=== PATIENT | male | born 1930 | race Two or more races ===

== ENCOUNTER 2017-07-28 18:19 | Inpatient (IN) | payer MEDICARE, MEDICAID ==
--- NOTE | 2017-07-28 18:53 | ED Physician Chart ---
ED Chief Complaint/HPI - Patient Information Date Seen:: 07/28/17 Time Seen:: 18:52 Allergies:: Allergies Allergy/AdvReac Type Severity Reaction Status Date / Time No Known Allergies Allergy Verified 02/11/16 19:36 Vitals:: Vital Signs - 8 hr 07/28/17 18:37 Temp 99.3 F HR 80 RR 18 BP 159/80 O2 Sat % 96 <Charles Wolf - Last Filed: 07/28/17 18:51> - Patient Information Chief Complaint:: increased delusions, psychosis History of Present Illness:: location: general quality: inappropriate toileting behavior severity: moderate duration; one day context: SNF pt with prior history of psychiatric problems was at facility today and having bowel movement and playing with feces in his room. facility RNs were unable to provide care for the patient due to this abnormal behavior so called physician who advised medical evaluation and possible psychiatric treatment as needed. medics report pt with stable vital signs during transport. no pain complaint. no fever, no vomiting. mod factors: none assoc s/s: none hx from facility RN, patient, physician Allergies:: Allergies Allergy/AdvReac Type Severity Reaction Status Date / Time No Known Allergies Allergy Verified 02/11/16 19:36 Vitals:: Vital Signs - 8 hr 07/28/17 18:37 Temp 99.3 F HR 80 RR 18 BP 159/80 O2 Sat % 96 Historian:: Patient, EMS Review:: Nurse's Note Reviewed <Ady Luna - Last Filed: 07/28/17 21:30> ED Review of Systems - Review of Systems General/Constitutional: No fever, No chills, No weight loss, No weakness, No diaphoresis, No edema, No loss of appetite Skin: No skin lesions, No rash, No bruising Head: No headache, No light-headedness Eyes: No loss of vision, No pain, No diplopia ENT: No earache, No nasal drainage, No sore throat, No tinnitus Neck: No neck pain, No swelling, No thyromegaly, No stiffness, No mass noted Cardio Vascular: No chest pain, No palpitations, No PND, No orthopnea, No edema Pulmonary: No SOB, No cough, No sputum, No wheezing GI: No nausea, No vomiting, No diarrhea, No pain, No melena, No hematochezia, No constipation, No hematemesis G/U: No dysuria, No frequency, No hematuria Musculoskeletal: No bone or joint pain, No back pain, No muscle pain Endocrine: No polyuria, No polydipsia Psychiatric: No prior psych history, No depression, No anxiety, No suicidal ideation Hematopoietic: No bruising, No lymphadenopathy Allergic/Immuno: No urticaria, No angioedema Neurological: No syncope, No focal symptoms, No weakness, No paresthesia, No headache, No seizure, No dizziness, No confusion, No vertigo <Ady Luna - Last Filed: 07/28/17 21:30> ED Past Medical History - Past Medical History Past Medical History: HTN, DM, CAD, Asthma/COPD, Dementia, Other (Alzheimer's, BPH) Family History: None Social History: Non Smoker, No Alcohol, No Drug Use, Single, Care Facility Surgical History: None Psychiatricy History: Dementia, Other (psychosis) Medication: Reviewed <Ady Luna - Last Filed: 07/28/17 21:30> Family Medical History - Family Member Father History Unknown: Yes Ethnicity: Living Status: Unknown <Charles Wolf - Last Filed: 07/28/17 18:51> ED Physical Exam - Physical Examination General/Constitutional: Awake, Well-developed, well-nourished, Alert, No distress, Non-toxic appearing Head: Atraumatic Eyes: Lids, conjuctiva normal, PERRL, EOMI Skin: Nl inspection, No rash, No skin lesions, No ecchymosis, Well hydrated, No lymphadenopathy ENMT: External ears, nose nl, Nasal exam nl, Lips, teeth, gums nl Neck: Nontender Respiratory: Nl effort/Exclusion, Clear to Auscultation, No Wheeze/Rhonchi/Rales Cardio Vascular: RRR, No murmur, gallop, rubs, NL S1 S2 GI: No tenderness/rebounding/guarding, Normal BS's, Nondistended, No McBurney tenderness : No CVA tenderness Extremities: No tenderness or effusion, No edema, Normal digits & nails Neuro/Psych: Normal sensory exam, Normal motor strength, Mood normal, No focal deficits Misc: Normal back, No paraspinal tenderness <Ady Luna - Last Filed: 07/28/17 21:30> ED Labs/Radiology/EKG Results - Lab Results Results: Laboratory Tests 07/28/17 07/28/17 20:15 20:15 WBC 8.2 RBC 4.75 Hgb 13.9 Hct 42.0 D MCV 88.5 MCH 29.2 MCHC Differential 33.0 RDW 14.9 Plt Count 290 D MPV 5.9 Neutrophils % 76.3 Lymphocytes % 14.9 L Monocytes % 6.5 Eosinophils % 2.3 Basophils % 0.0 ESR 75 H Sodium 138 Potassium 3.8 Chloride 106 Carbon Dioxide 25.1 Anion Gap 10.7 BUN 23 Creatinine 0.5 L Est GFR ( Amer) TNP Est GFR (Non-Af Amer) TNP BUN/Creatinine Ratio 46.0 Glucose 123 H Calcium 9.6 Total Bilirubin 0.3 AST 13 ALT 8 Alkaline Phosphatase 97 Total Protein 6.8 Albumin 3.8 L Globulin 3.0 Albumin/Globulin Ratio 1.3 Laboratory Tests 07/28/17 07/28/17 20:15 20:15 WBC 8.2 RBC 4.75 Hgb 13.9 Hct 42.0 D MCV 88.5 MCH 29.2 MCHC Differential 33.0 RDW 14.9 Plt Count 290 D MPV 5.9 Neutrophils % 76.3 Lymphocytes % 14.9 L Monocytes % 6.5 Eosinophils % 2.3 Basophils % 0.0 ESR 75 H Sodium 138 Potassium 3.8 Chloride 106 Carbon Dioxide 25.1 Anion Gap 10.7 BUN 23 Creatinine 0.5 L Est GFR ( Amer) TNP Est GFR (Non-Af Amer) TNP BUN/Creatinine Ratio 46.0 Glucose 123 H Calcium 9.6 Total Bilirubin 0.3 AST 13 ALT 8 Alkaline Phosphatase 97 Total Protein 6.8 Albumin 3.8 L Globulin 3.0 Albumin/Globulin Ratio 1.3 - EKG Interpretations Comments:: EKG NSR 82 prolonged OK interval abnormal R wave progression, early transition pt with no chest pain abnormal EKG with chronic findings ER READ <Ady Luna Last Filed: 07/28/17 21:30> ED Assessment - Assessment General Assessment: pt in stable condition while in ER. pt is talking to himself while in ER and supine on gurney <Ady Luna - Last Filed: 07/28/17 21:30> ED Septic Shock - <6hrs of presentation: Vital Signs: Vital Signs - 8 hr 07/28/17 18:37 Temp 99.3 F HR 80 RR 18 BP 159/80 O2 Sat % 96 <Charles Wolf - Last Filed: 07/28/17 18:51> - . Is Septic Shock (SBP<90, OR Lactate>4 mmol\L) present?: No - <6hrs of presentation: Vital Signs: Vital Signs - 8 hr 07/28/17 18:37 Temp 99.3 F HR 80 RR 18 BP 159/80 O2 Sat % 96 <Ady Luna - Last Filed: 07/28/17 21:30> ED Reassessment (Disposition) - Reassessment Reassessment:: pt in stable condition while in ER. Reassessment Condition:: Unchanged - Diagnosis Diagnosis:: medical clearance for gertrude psyc acute psychosis with abnormal behavior, playing with fecal matter. - Patient Disposition Discharge/Transfer:: Acute Care w/in this hosp Admitted to:: [facility] Admitting Medical Physician:: Dereck Rueda Admitting Psych Physician:: Esdras Mendez Condition at Disposition:: Stable <Ady Luna - Last Filed: 07/28/17 21:30> ED Discharge Plan <Charles Wolf - Last Filed: 07/28/17 18:51> <Ady Luna - Last Filed: 07/28/17 21:30> - Patient Disposition Instructions: Psychosis
[2017-07-28 20:22] LABS: % EOSINOPHILS 2.3 % (0.0-5.0); % LYMPHOCYTES 14.9 % (20.0-50.0); % MONOCYTES 6.5 % (2.0-10.0); % NEUTROPHILS 76.3 % (40.0-80.0); EOSINOPHILE ABSOLUTE 0.2 Th/cmm (0.1-0.4); HEMOGLOBIN 13.9 gm/dL (12-16); LYMPHOCYTE ABSOLUTE 1.2 Th/cmm (1.5-3.0); MEAN CELL VOLUME 88.5 fl (80-99); MEAN CORPUSCULAR HEMOGLOBIN 29.2 pg (27.0-31.0); MEAN PLATELET VOLUME 5.9 fl; MONOCYTE ABSOLUTE 0.5 Th/cmm (0.3-1.0); NEUTROPHILE ABSOLUTE 6.3 Th/cmm (1.8-8.0); RED BLOOD COUNT 4.75 Mil/cmm (3.80-5.80); RED CELL DISTRIBUTION WIDTH 14.9 % (11.5-20.0); WHITE BLOOD COUNT 8.2 Th/cmm (4.8-10.8)
[2017-07-28 20:23] LABS: PLATELET COUNT 290 Th/cmm (150-400)
[2017-07-28 20:42] LABS: ALBUMIN 3.8 gm/dL (4.2-5.5); ANION GAP 10.7 (7.0-16.0); BUN - UREA NITROGEN 23 mg/dL (7-25); CALCIUM SERUM 9.6 mg/dL (8.6-10.3); CARBON DIOXIDE 25.1 mEq/L (21.0-31.0); CHLORIDE 106 mEq/L (98-107); CREATININE - SERUM 0.5 mg/dL (0.7-1.3); GLUCOSE 123 mg/dL (70-105); POTASSIUM SERUM 3.8 mEq/L (3.5-5.1); SODIUM SERUM 138 mEq/L (136-145); TOTAL PROTEIN,SERUM 6.8 gm/dL (6.0-8.3)
[2017-07-28 20:43] LABS: ALB/GLOB RATIO 1.3 (1.0-1.8); ALKALINE PHOSPHATASE 97 U/L (34-104); BILIRUBIN,TOTAL 0.3 mg/dL (0.3-1.0); SGOT 13 U/L (13-39); SGPT/ALT 8 U/L (7-52)
[2017-07-28 21:04] LABS: ESR SEDIMENTATION SED RATE 75 mm/hr (0-20)
[2017-07-28 22:28] VITALS: BP 152/72
[2017-07-28] MEDS ORDERED: Magnesium Hydroxide (MOM) 30 mL UDC PO PRN (23:05)
[2017-07-28] MEDS ORDERED: Maalox 30 mL Cup PO PRN (23:05)
[2017-07-29] MEDS ORDERED: Non-Formulary Item 1 EA (Amino Acids/Protein Hydrolys [Pro-Stat Sugar Free Liquid] 30 ML) PO SCH (09:00)
[2017-07-29] MEDS: Multivitamin Tab PO SCH (09:26)
--- NOTE | 2017-07-29 09:46 | History & Physical ---
ADMIT DATE: PATIENT IDENTIFICATION: An 86-year-old male. CHIEF COMPLAINT: "I'm fine." HISTORY OF PRESENT ILLNESS: An 86-year-[place] resident of [place], has been followed by myself and my nurse practitioner, sent to [facility] Emergency Room for delusion because he believes that everything belongs to him and he was confused and agitated. The patient was seen by ER MD and subsequently admitted to Geropsych Unit for further management. PAST MEDICAL HISTORY: Remarkable for; 1. Diabetes. 2. Hypertension. 3. Alzheimer's dementia. 4. Diffuse DJD. 5. Coronary artery disease. 6. COPD. 7. BPH. MEDICATIONS: Medication list has been reviewed and reconciled appropriately. ALLERGIES: The patient is not allergic to any medication. SOCIAL HISTORY: The patient lives in a detention. The patient does not smoke, does not drink. FAMILY MEDICAL HISTORY: Negative for diabetes, hypertension. REVIEW OF SYSTEMS: Unable to get meaningful history due to current condition. PHYSICAL EXAMINATION: GENERAL: The patient is alert, awake, follows command. VITAL SIGNS: Temperature 98, pulse is 64, respiratory rate 18, and blood pressure 136/70. HEENT: Normocephalic, atraumatic. Extraocular muscles are intact. Tongue was pink and coated. Poor dentition noted. No oral lesion. No exudate. No sinus tenderness. External auditory canal and tympanic membranes are well visualized. NECK: Supple. No JVD. No hepatojugular reflex. No lymphadenopathy, thyromegaly, or carotid bruit. HEART: Both heart sounds are regular. CHEST: Lung equal in expansion. No expiratory wheezing. ABDOMEN: Soft. No guarding. No rigidity. Liver and spleen are not palpable. No palpable mass. EXTREMITIES: No edema. No cyanosis. No clubbing. Pulses are +2. No calf tenderness noted. Diffuse osteoarthritic changes noted. NEUROLOGIC: Alert and awake, follows command. No facial asymmetry. Power in upper and lower extremity is 5-. Sensation to touch was intact. Babinski in both toes are going down. No cerebral sign. AVAILABLE DIAGNOSTIC DATA: Performed in Emergency Room has been reviewed. Total time reviewing the record was approximately 1 minute. CLINICAL IMPRESSIONS: 1. Diabetes mellitus. 2. Hypertension. 3. Hyperlipidemia. 4. Coronary artery disease. 5. Chronic obstructive pulmonary disease. 6. Alzheimer's dementia. 7. Degenerative joint disease. 8. Psychotic disorder exacerbation. PLAN: 1. Psychotic disorder exacerbation management deferred to psychiatrist. 2. Resume his home medicine as the patient is receiving. 3. Fall precaution. 4. General nursing care. 5. The patient is medically stable to participate in the activity per the Geropsych Unit. 6. The patient will be followed by us during his stay for medical management. 7. Care plan reviewed and discussed with staff as well. JOB# [id number]
[2017-07-29] MEDS ORDERED: Non-Formulary Item 1 EA (Melatonin [Melatonin] 6 MG) PO SCH (21:00)
--- NOTE | 2017-07-30 02:23 | Psychosocial Evaluation ---
DATE OF SERVICE: 07/29/2017 PSYCHIATRIC EVALUATION AND EXAMINATION IDENTIFYING DATA: The patient is an 86-year-old male, resident of [facility]. Information obtained by directly interviewing the patient as well as reviewing the admission papers. JUSTIFICATION OF HOSPITALIZATION: The patient is admitted here on a voluntary basis in view of acute psychosis and agitation. CHIEF COMPLAINT: "I am not strong enough, I need to get some help." HISTORY OF PRESENT ILLNESS: This is the first psychiatric hospitalization to [facility] for this patient who is reported to have been getting easily agitated and has been getting easily upset. The patient is also reported to have been acting very bizarre and not making much sense and hence the patient has been referred over here for further stabilization. The patient is being followed up by Dr. Herrera on an outpatient basis. Sleep and appetite prior to the hospitalization are reported to be poor. The patient is stating that he needs to get some strength and when I spoke to someone there is speaking American. The patient is not making any sense and is going on a tangent. PAST PSYCHIATRIC HISTORY: Details are not known. MEDICAL HISTORY: Physical examination is requested to be done by Dr. Mendez. SUBSTANCE ABUSE HISTORY: None. PHYSICAL OR SEXUAL ABUSE HISTORY: None. LEGAL PROBLEMS: None at this time. MENTAL STATUS EXAMINATION: The patient is an 86-year-old, looking his stated age, thin built, superficially cooperative, and primarily American speaking. Insight and judgment are very much impaired. Impulse control is noted to be poor. The patient has both short-term as well as long-term memory deficits, but the patient is stating that he came into the hospital to get some strength. The patient's behavior is reported to have been a danger to others and the patient is not suicidal. The patient is reported to have been getting easily upset. DIAGNOSTIC IMPRESSION: AXIS I: 1A. Psychosis, not otherwise specified. 1B. Dementia and behavioral change, secondary trait. AXIS II: None. AXIS III: As per Dr. Mendez. IMMEDIATE TREATMENT PLAN: The patient is going to be observed on inpatient unit, provided with supportive psychotherapy. The patient is going to be started on low dose of the Seroquel. The patient is going to be closely monitored. Once stabilized, the patient is going to be discharged to [facility] to be followed up on an outpatient basis. JOB# [id number]
[2017-07-30] MEDS: Multivitamin Tab PO SCH (09:26)
--- NOTE | 2017-07-31 00:50 | Consultation ---
DATE OF CONSULTATION: 07/30/2017 REQUESTING PHYSICIAN: Dereck Rueda M.D. TYPE OF CONSULTATION: Psychology. HISTORY OF PRESENT ILLNESS: The following is by review of the medical record as well as by patient's self report. According to record review, the patient is an 86-year-old male who was a resident of [facility]. This patient is known to this resume writer from his assisted facility. The patient is being admitted on a voluntary basis due to acute psychosis and agitation. Upon interview, the patient was able to recognize this resume writer. The patient stated he feels very weak and that he needs help. The patient was not specific as to what type of help he is requesting. The patient denied any suicidal ideation, plan, or intention. The patient is able to contract for safety. According to the staff at his facility, the patient has been getting easily agitated and is not making much sense. The staff indicated that his behavior had become unredirectable and therefore, he was referred here for stabilization. PAST MEDICAL HISTORY: Please see history and physical by Dr. Mendez. PAST PSYCHIATRIC HISTORY: The patient has a history of dementia with behavioral disturbance and psychosis. The patient has been seen at his facility by this resume writer as well as by Dr. Herrera for Psychiatry. CURRENT MEDICATIONS: Please see medication reconciliation. ALLERGIES: No known allergies. SUBSTANCE ABUSE HISTORY: None unremarkable. PSYCHOSOCIAL HISTORY: The patient is a resident at [facility]. The patient does have family members that visit him and are supportive. The patient is retired. Occupational and educational history are in the previous medical record. 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 MENTAL STATUS EXAMINATION: The patient appears to be his stated age. The patient's attitude is superficially cooperative. He is easily distracted. Eye contact is poor. The patient is able to speak some basic Swiss. The patient was also seen with a Lao speaking SECTION REPAIRER to assist in interpretation if needed. Mood is confused and depressed. Affect is constricted. Thought process shows to be confused. The patient is not making much sense and his thought process is markedly tangential. He admits to feeling helpless. He did respond to cognitive redirection. The patient denied any suicidal ideation, plan or intention. The patient denies any auditory or visual hallucinations. Impulse control is poor. Concentration is poor. The patient was unable to sustain focus and attention but did respond to cognitive redirection. The patient's sensorium is alert and oriented to self and this resume writer, but not to place, date, or time. The patient also unable to perform the memory exercises for evaluation. Immediate short term and long-term memory are impaired. The patient did not answer questions when given the 3 proverbs. Insight is poor. Judgment is compromised. DIAGNOSTIC IMPRESSION: AXIS I: 1. Psychosis, not otherwise specified. 2. History of dementia with behavioral disturbance. AXIS II: None. AXIS III: Please see history and physical by Dr. Mendez. TREATMENT PLAN: The patient has been evaluated by Dr. Rueda for psychiatric assessment and the management of the patient's psychotropic medications. We will provide supportive therapy. We will provide reality orientation, reality differentiation, and reality integration. We will provide motivational enhancement and positive reinforcement for the patient to become compliant and stay compliant with all aspects of his care and treatment. We will provide coping skills for phase of life issues which include amara-based beliefs that he responds to. The patient will be followed up post-discharge at his assisted facility by Dr. Herrera as well as this resume writer. Thank you, Dr. Rueda for this consult and the opportunity to participate in this patient's care. JOB# [id number] BYRON
--- NOTE | 2017-07-31 02:57 | Progress Notes ---
DATE: 07/30/2017 SUBJECTIVE: Staff was spoken to. The patient is interviewed. Mood is noted to be irritable. Affect is constricted. The patient is very agitated and has been screaming and yelling and trying to get out of the GD chair. The patient has no insight into his illness. Coping skills are noted to be extremely poor. The patient is reported to have been playing with his feces. The patient is not making any sense and has been cursing the staff out and hence it is decided to start the patient with 12.5 mg twice a day of the Seroquel and follow the patient with supportive therapy. The patient is going to be given a dose of the Ativan to calm him down at this time. ASSESSMENT: The patient is very confused and agitated and is not ready to be discharged to a lower level of care. JOB# [id number]
[2017-07-31] MEDS: Multivitamin Tab PO SCH (09:09)
--- NOTE | 2017-07-31 21:28 | Progress Notes ---
DATE: 07/31/2017 SUBJECTIVE: The patient seen and examined. The patient is lying in the bed, unable to get meaningful history from the patient. Available MAR and lab reviewed. PHYSICAL EXAMINATION: On exam, VITAL SIGNS: Temperature 98.8, pulse 80, respiratory is 18, blood pressure 125/70. HEENT: No facial asymmetry. NECK: Supple. No JVD. HEART: Regular. CHEST AND LUNG: Equal in expansion. Mild expiratory wheezing. ABDOMEN: Soft. No guarding, rigidity. Bowel sounds are present. No palpable mass. EXTREMITIES: No edema. No cyanosis. NEUROLOGIC: Alert, awake, follows commands. CLINICAL IMPRESSION: 1. Diabetes. 2. Hypertension. 3. Alzheimer dementia. 4. Diffuse degenerative joint disease. 5. Coronary artery disease. 6. Chronic obstructive pulmonary disease remained stable. 7. Benign prostatic hypertrophy. 8. Psychotic disorder. PLAN: 1. Glucose monitoring. 2. Antihypertensive medicine. 3. Statin. 4. Aspirin. 5. Psych medication. 6. Dementia medication. 7. Fall precaution. 8. General nursing care. 9. We will continue to follow this patient in the hospital. JOB# [id number]
--- NOTE | 2017-07-31 23:46 | Progress Notes ---
DATE: 07/31/2017 CHIEF COMPLAINT: Psychotic illness. SUBJECTIVE: The patient was seen, discussed with staff. Still confused, disorganized. The patient at times playing with himself, disrobe in playing with his feces. MENTAL STATUS EXAM: The patient is oriented to person, not oriented to time or place. Yi speaking, mostly internally preoccupied. Insight is poor. Judgment impaired. ASSESSMENT: The patient in psychotic phase, still confused. PLAN: Continue Seroquel 12.5 mg p.o. b.i.d. and Aricept 10 mg p.o. at bedtime. JOB# [id number]
[2017-08-01] MEDS: Multivitamin Tab PO SCH (08:41)
--- NOTE | 2017-08-02 04:42 | Progress Notes ---
DATE: 08/01/2017 SUBJECTIVE: The patient is seen. The patient presents as confused and speaking Japanese only today. This business writer enlisted the aid of a Japanese speaking EDGE BURNISHER UPPERS to assist in interpreting. The patient is preoccupied and responding to internal stimuli. The patient is not making any sense even with the interpretation. According to staff, the patient has been disrobing and openly touching himself below the waist. Behavioral redirection is still difficult and the patient is not responding. OBJECTIVE: As above, the patient is oriented to self only. Mood is irritable. The patient did not answer questions about auditory or visual hallucinations; however, the patient is obviously preoccupied with internal dialogue. Insight and judgment are impaired. ASSESSMENT: Psychosis, not otherwise specified; Dementia with behavioral disturbance. PLAN: The patient has been seen by Dr. Marquez and is continued on Seroquel and Aricept. We provided behavioral management with respect to the patient's poor impulse control and for the patient to become compliant with care and to follow through with staff direction. The patient will be closely monitored. Remotivation towards treatment is given. JOB# [id number] MTDD
[2017-08-02] MEDS: Multivitamin Tab PO SCH (08:29)
--- NOTE | 2017-08-02 10:29 | Progress Notes ---
DATE: 08/01/2017 SUBJECTIVE: I met this patient, discussed with staff, chart reviewed; still irritable; talking to himself, mostly in Slovenian. The patient is oriented to person, not oriented to time and place. The patient continues to have some anger outbursts and agitation. The patient appears to be confused and forgetful. ASSESSMENT: We will continue stabilization. Continue medication management. Continue supportive measures. Continue Seroquel and Aricept. [facility]# [id number]
--- NOTE | 2017-08-03 01:15 | Progress Notes ---
DATE: 08/02/2017 SUBJECTIVE: The patient was seen, chart reviewed. Still disorganized, confused, irritable. The patient is Cuban speaking only. The patient is still at times playing with his feces, but his appetite is fair. The patient is taking his medications, does not appear to have any sedation. ASSESSMENT: The patient still in psychotic phase. PLAN: Continue stabilization. Continue hospitalization. Monitor closely. JOB# [id number]
[2017-08-03] MEDS: Multivitamin Tab PO SCH (09:17)
--- NOTE | 2017-08-03 20:21 | Progress Notes ---
DATE: 08/03/2017 SUBJECTIVE: The patient was seen today, remains superficial, disorganized, still have some anger outburst, still episodes where with feces. His insight is poor and judgment is impaired. The patient is oriented to person, not oriented to time or place. ASSESSMENT: The patient is still confused, some agitation. PLAN: Continue supportive measure, continue Seroquel 12.5 mg p.o. b.i.d. and Aricept at current dose. Add Namenda 5 mg p.o. every day. JOB# [id number]
[2017-08-04] MEDS: Multivitamin Tab PO SCH (09:18)
--- NOTE | 2017-08-04 10:21 | Progress Notes ---
DATE: 08/04/2017 SUBJECTIVE: The patient seen and examined. The patient is lying in the bed. No new event. Available MAR reviewed. Available nurse's note reviewed. OBJECTIVE: VITAL SIGNS: Temperature 98, pulse is 70, respiratory rate is 20, blood pressure 132/76. HEENT: No facial asymmetry. Poor dentition noted. NECK: Supple. No JVD. No hepatojugular reflux. No lymphadenopathy. HEART: Both heart sounds are regular. CHEST: Lung equal in expansion, no expiratory wheezing. ABDOMEN: Soft. No guarding, rigidity. Bowel sounds are present. No palpable mass. EXTREMITIES: No edema. NEUROLOGIC: Alert, awake, follows commands. Decreased power throughout the upper and lower extremity. MEDICATION: Admission record is reviewed. CLINICAL IMPRESSION: 1. Diabetes. 2. Hypertension. 3. Alzheimer's dementia. 4. Coronary artery disease. 5. Chronic obstructive pulmonary disease. 6. Benign prostatic hypertrophy. 7. Psychotic disorder. 8. Degenerative joint disease. 9. Decline in self-care and mobility. PLAN: 1. Diabetes management. 2. Antihypertensive medicine. 3. Psych followup. 4. P.r.n. inhalation therapy. 5. General nursing care. 6. Over bladder outlet obstruction. 7. Follow consult recommendation. 9. Care plan reviewed and discussed with staff. JOB# [id number]
--- NOTE | 2017-08-05 02:11 | Progress Notes ---
DATE: 08/04/2017 SUBJECTIVE: The patient was seen, chart reviewed, discussed with staff. Still forgetful, confused, irritable at times, some anger outburst. The patient was easy to redirect by staff. He is compliant with his medications. His insight is still poor, judgment remains impaired. The patient is oriented to person, not oriented to time or place. ASSESSMENT: The patient with agitation and anger outburst, still displaying bizarre behavior at times. PLAN: Continue hospitalization and monitor closely. Continue supportive measures. Continue medication management. JOB# [id number]
[2017-08-05] MEDS: Multivitamin Tab PO SCH (09:53)
--- NOTE | 2017-08-05 20:28 | Discharge Summary ---
DATE OF DISCHARGE: 08/05/2017 REASON FOR HOSPITALIZATION: Psychosis, not otherwise specified; dementia, Alzheimer's type with behavior disturbances. HISTORY OF PRESENT ILLNESS: The patient is an 86-year-old male who was transferred from his detention facility [facility] for increased confusion, agitation, anger outburst and acting bizarre, was disorganized and was becoming difficult to care for at his facility. The patient was evaluated and admitted. HOSPITALIZATION COURSE: The patient was noted to be forgetful, confused, sometimes becomes agitated mostly with male staff. The patient was given Seroquel. Agitation improved over time. Some sense of confusion, was noted to be playing with feces at times. Condition responded to the treatment favorably. In terms of agitation and aggressive behavior, which subsided down and the patient was discharged back to his detention facility. However, he continued to became forgetful. FINAL DIAGNOSES: Psychosis, not otherwise specified; dementia, Alzheimer's type. PAST MEDICAL HISTORY: Diabetes, hypertension, DJD, CAD, COPD, BPH. CONDITION ON DISCHARGE: Improved. No agitation, but patient still forgetful. The patient with fair sleep and appetite. DISPOSITION: The patient was discharged back to his facility. EXPECTED COURSE OF RECOVERY: Fair. The patient with chronic condition. JOB# [id number]
== END 2017-08-05 15:30 | disposition home or self-care (01) | DRG 885 ==
LOC: ER 18:19 → GERO 21:20 → GERO2 08-04 09:55
PROVIDERS: ADMIT Psychiatry & Neurology Psychiatry; ATTEND Psychiatry & Neurology Psychiatry
DX: F29 Unspecified psychosis not due to a substance or known physiological condition (principal); F02.81 Dementia in other diseases classified elsewhere, unspecified severity, with behavioral disturbance; E11.9 Type 2 diabetes mellitus without complications; G30.9 Alzheimer's disease, unspecified; N40.0 Benign prostatic hyperplasia without lower urinary tract symptoms; I10 Essential (primary) hypertension; E78.5 Hyperlipidemia, unspecified; I25.10 Atherosclerotic heart disease of native coronary artery without angina pectoris; J44.9 Chronic obstructive pulmonary disease, unspecified; M19.90 Unspecified osteoarthritis, unspecified site
CPT/HCPCS: 36415-UA; 80053-TC; 84443-TC; 85025-TC; 85652-TC; 93005; Z7610